=== PATIENT | female | born 1995 | race Caucasian/White ===

== ENCOUNTER 2023-09-08 10:19 | Emergency (ER) | payer OTHER ==
[~2023-09-08] VITALS: Ht 157.5 cm; Wt 66.0 kg
[2023-09-08 10:22] VITALS: BP 120/48; PULSE 77; RESP 12; TEMP 97.9; O2SAT 98
[2023-09-08] MEDS ORDERED: HYD1C TP (10:36)
[2023-09-08 10:42] VITALS: BP 120/48; PULSE 77; RESP 12; TEMP 97.9; O2SAT 98
== END 2023-09-08 10:42 | disposition home or self-care (01) ==
LOC: MED 10:19
DX: L25.9 Unspecified contact dermatitis, unspecified cause (principal)
CPT/HCPCS: 99282